=== PATIENT | female | born 2000 | race Two or more races ===

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

== ENCOUNTER 2023-02-24 20:42 | Emergency (ER) | payer OTHER ==
[~2023-02-24] VITALS: Ht 154.9 cm; Wt 61.2 kg
[~2023-02-24 20:42] MED LIST changes: +ORASEP SPRAY30 ML MM; +OSEL75CA PO; +TUSICOF CAPLET1 EACH PO
[2023-02-24] MEDS ORDERED: LEVO-T25 MCG PO (21:32)
[2023-02-25] MEDS ORDERED: PEPCID AC20 MG PO (06:38)
[2023-02-25] MEDS ORDERED: DICLOFENAC POTA50 MG PO (06:38)
== END 2023-02-25 07:22 | disposition home or self-care (01) ==
LOC: ER 20:42
DX: K29.70 Gastritis, unspecified, without bleeding (principal); R10.2 Pelvic and perineal pain
CPT/HCPCS: 36415; 74177; Q9965

== ENCOUNTER 2023-03-31 21:27 | Emergency (ER) | payer OTHER ==
[~2023-03-31] VITALS: Ht 154.9 cm; Wt 61.2 kg
[~2023-03-31 21:27] MED LIST changes: +DICLOFENAC POTA50 MG PO; +LEVO-T25 MCG PO; +PEPCID AC20 MG PO
== END 2023-03-31 23:49 | disposition home or self-care (01) ==
LOC: ER 21:27
DX: N39.0 Urinary tract infection, site not specified (principal); J10.1 Influenza due to other identified influenza virus with other respiratory manifestations; Z20.822 Contact with and (suspected) exposure to COVID-19

== ENCOUNTER 2023-05-03 08:57 | Emergency (ER) | payer OTHER ==
[~2023-05-03] VITALS: Ht 154.9 cm; Wt 61.2 kg
== END 2023-05-03 13:05 | disposition home or self-care (01) ==
LOC: ER 08:57
DX: B34.8 Other viral infections of unspecified site (principal); N39.0 Urinary tract infection, site not specified; Z20.822 Contact with and (suspected) exposure to COVID-19

== ENCOUNTER 2023-05-08 01:25 | Emergency (ER) | payer OTHER ==
[~2023-05-08] VITALS: Ht 154.9 cm; Wt 61.2 kg
[2023-05-08] MEDS ORDERED: LEVOTHYROXINE25 MCG (01:37)
[2023-05-08] MEDS ORDERED: LEVOFLOXACIN500 MG PO (06:00)
[2023-05-08] MEDS ORDERED: URETRON D-S TAB1 TAB PO (06:00)
== END 2023-05-08 06:08 ==
LOC: ER 01:25
PROVIDERS: General Practice
DX: N39.0 Urinary tract infection, site not specified (principal)

== ENCOUNTER 2023-07-25 21:42 | Emergency (ER) | payer OTHER ==
[~2023-07-25] VITALS: Ht 154.9 cm; Wt 64.9 kg
[~2023-07-25 21:42] MED LIST changes: +LEVOFLOXACIN500 MG PO; +LEVOTHYROXINE25 MCG; +URETRON D-S TAB1 TAB PO
[2023-07-25 23:13] LABS: HEMATOCRIT 39.1 % (36.0-45.00); HEMOGLOBIN 13.4 g/dL (12.0-15.00); MEAN CELL VOLUME 84.5 fL (80.00-100.00); MEAN CORPUSCULAR HEMOGLOBIN 28.9 pg (27.00-32.0); MEAN CORPUSCULAR HGB CONC 34.3 g/dl (32.0-36.0); PLATELET COUNT 339 K/uL (150-450); RED BLOOD COUNT 4.63 M/uL (4.00-6.00); RED CELL DISTRIBUTION WIDTH 13.4 % (11.5-14.5)
[2023-07-25 23:41] LABS: CALCIUM 9.4 mg/dL (8.5-10.1); CREATININE SERUM 0.66 mg/dL (0.55-1.02); GFR 113.05; POTASSIUM 3.99 mEq/L (3.5-5.1); TSH 0.959 uIU/mL (0.358-3.74)
== END 2023-07-26 02:11 | disposition home or self-care (01) ==
LOC: ER 21:42
PROVIDERS: General Practice
DX: M94.0 Chondrocostal junction syndrome [Tietze] (principal)

== ENCOUNTER → 2023-09-14 | Emergency (ER) | payer OTHER ==
[~2023-09-14] VITALS: Ht 154.9 cm; Wt 67.1 kg
[~2023-09-14] MED LIST changes: +LEVOTHYROXINE25 MCG PO
== END | disposition left against medical advice (07) ==
LOC: ER 20:23
DX: Z53.21 Procedure and treatment not carried out due to patient leaving prior to being seen by health care provider (principal)

== ENCOUNTER 2023-09-23 00:55 | Emergency (ER) | payer OTHER ==
[~2023-09-23] VITALS: Ht 167.6 cm; Wt 74.8 kg
[2023-09-23 02:21] LABS: ABG PH 7.425 (7.35-7.45); ABG PO2 105.6 mmHg (80-100); ABG pCO2 38.9 mmHg (35-45); BASE EXCESS 0.7 mmol/l; BICARBONATE 24.9 mmol/l (23-25); SaO2 98.2 %; Tco2 26.1 mmol/l; allen test SATISFACTORY; puncture site RADIAL RIGHT
[2023-09-23 02:22] LABS: o2 21 %
[2023-09-23 02:39] LABS: HEMATOCRIT 40.4 % (36.0-45.00); HEMOGLOBIN 13.8 g/dL (12.0-15.00); MEAN CELL VOLUME 84.7 fL (80.00-100.00); MEAN CORPUSCULAR HGB CONC 34.2 g/dl (32.0-36.0); PLATELET COUNT 352 K/uL (150-450); RED BLOOD COUNT 4.76 M/uL (4.00-6.00); RED CELL DISTRIBUTION WIDTH 13.5 % (11.5-14.5)
[2023-09-23 03:12] LABS: ALKALINE PHOSPHATASE 73 U/L (50-136); ALT/SGPT 16 U/L (12-78); ANION GAP 10 (10.0-20.0); AST/SGOT 7 U/L (15-37); BILIRUBIN TOTAL 0.33 mg/dL (0.3-1.2); BLOOD UREA NITROGEN 14 mg/dL (7-18); BUN CREA RATIO 21 (7.0-25.0); CALCIUM 9.2 mg/dL (8.5-10.1); CARBON DIOXIDE 29 mEq/L (21-32); CHLORIDE 106 mmol/L (98-107); CREATININE SERUM 0.66 mg/dL (0.55-1.02); GFR 113.05; GLOBULINA 3.4 G/DL (2.4-3.5); GLUCOSE FASTING 111 mg/dL (65-100); OSMOLALITY SERUM 282 MOSM/KG (275-295); POTASSIUM 3.82 mEq/L (3.5-5.1); SODIUM 141 mmol/L (136-145); TOTAL PROTEIN 7.4 gm/dL (6.4-8.2)
[2023-09-23 04:27] LABS: HCG QUANTITATIVE < 1 mUI/mL (1-3)
[2023-09-23] MEDS ORDERED: NABUMETONE750 MG PO (05:14)
== END 2023-09-23 05:59 ==
LOC: ER 00:55
PROVIDERS: General Practice
DX: R07.9 Chest pain, unspecified (principal); R11.0 Nausea; R06.02 Shortness of breath